=== PATIENT | male | born 1975 ===

== ENCOUNTER 2016-07-30 12:31 | Emergency (ER) | payer MEDICAID ==
[2016-07-30 14:14] LABS: BASO # 0.1 K/uL (0.0-0.2); BASO % 1.1 % (0.0-2.0); EOS # 0.2 K/uL (0.0-0.7); EOS % 2.1 % (0.0-4.0); LYMPH # 2.1 K/uL (1.0-4.3); LYMPH % 21.6 % (20.0-40.0); MEAN CELL VOLUME 93.3 fL (80.0-94.0); MEAN CORPUSCULAR HEMOGLOBIN 30.5 pg (27.0-31.0); MEAN CORPUSCULAR HGB CONC 32.7 g/dL (33.0-37.0); MEAN PLATELET VOLUME 10.8 fL (7.2-11.7); MONO # 0.5 K/uL (0.0-0.8); MONO % 4.8 % (0.0-10.0); NRBC % 0.1 % (0.0-2.0); RED CELL DISTRIBUTION WIDTH 13.9 % (11.5-14.5); WHITE BLOOD COUNT 9.8 K/uL (4.8-10.8)
--- NOTE | 2016-07-30 14:18 | C.PDOC ---
History Of Present Illness 40 y/o male pmhx PTSD, anxiety presents to ED s/p syncopal episode earlier today. 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 Pt woke up with bump to head, headache, right shoulder pain and abrasion. Pt reports similar syncopal episodes in the past associated with anxiety. Pt denies vision changes, nausea, vomiting, chest pain, palpitations, SOB or any other complaints. Time Seen by Provider: 07/30/16 13:33 Chief Complaint (Nursing): Syncope History Per: Patient History/Exam Limitations: no limitations Onset/Duration Of Symptoms: Mins Current Symptoms Are (Timing): Gone Fall Associated With With Symptoms: Yes, Positive Injury Severity: Moderate Recent travel outside of the [place]: No Past Medical History Reviewed: Historical Data, Nursing Documentation, Vital Signs Vital Signs: Last Vital Signs Temp 97.5 F L 07/30/16 12:38 Pulse 66 07/30/16 12:38 Resp 16 07/30/16 12:38 BP 139/83 07/30/16 12:38 Pulse Ox 98 07/30/16 15:47 - Medical History PMH: Anxiety, Depression, HTN, Post Traumatic Stress Disorder Family History: States: Unknown Family Hx - Social History Hx Tobacco Use: No Hx Alcohol Use: No Hx Substance Use: No - Immunization History Hx Tetanus Toxoid Vaccination: No Hx Influenza Vaccination: No Hx Pneumococcal Vaccination: No Review Of Systems Constitutional: Negative for: Fever Cardiovascular: Negative for: Chest Pain, Palpitations Respiratory: Negative for: Shortness of Breath Gastrointestinal: Negative for: Nausea, Vomiting Musculoskeletal: Positive for: Other (righty shoulder pain with abrasion) Neurological: Positive for: Headache Physical Exam - Physical Exam Additional Physical Exam Comments: Constitutional: No acute distress. Head: Normocephalic. Small hematoma to right parietal scalp. Eyes: PERRL. ENT: Moist mucous membranes. Neck: Supple. Cardiovascular: Regular rate. Radial pulse 2+ bilaterally. Chest: No tenderness. Respiratory: Clear to auscultation bilaterally. GI: Soft. Nontender. Nondistended. Back: No CVA tenderness. Musculoskeletal: No tenderness or swelling of extremities. Superficial abrasion to right anterior shoulder, full ROM. Skin: As above. Neurologic: Alert, no focal deficit ED Course And Treatment - Laboratory Results Result Diagrams: 07/30/16 14:10 07/30/16 14:10 O2 Sat by Pulse Oximetry: 98 (room air) Pulse Ox Interpretation: Normal Medical Decision Making Medical Decision Making: Plan: * CT head * XR right shoulder * EKG * labs CT HEAD-- EXAM: CT Head Without Intravenous Contrast CLINICAL HISTORY: 40 years old, male; Injury or trauma; Fall; Initial encounter; Concussion / head injury; Injury date: 07/30/16; Injury details: ? Panic attack; Additional info: Fall, head injury TECHNIQUE: Axial computed tomography images of the head/brain without intravenous contrast. This CT exam was performed using one or more of the following dose reduction techniques: automated exposure control, adjustment of the mA and/or kV according to patient size, and/or use of iterative reconstruction technique. EXAM DATE/TIME: Exam ordered 07/30/2016 2:05 PM COMPARISON: No relevant prior studies available. FINDINGS: Brain: Unremarkable. No hemorrhage. No significant white matter disease. No edema. Ventricles: Unremarkable. No ventriculomegaly. Bones/joints: Unremarkable. No acute fracture. Soft tissues: Unremarkable. Vasculature: Small rounded filling defect is noted within the left sigmoid sinus consistent with a benign arachnoid granulation. Sinuses: Minimal mucosal thickening is noted within the posterior ethmoids on the left. No acute sinusitis. Mastoid air cells: Unremarkable as visualized. No mastoid effusion. IMPRESSION: 1. No acute findings. 2. Minimal mucosal thickening is noted within the posterior ethmoids on the left. Shoulder XR-- no fracture or dislocation. EKG Sinus rhythm 60 bpm, no ST/T wave changes. Patient in no distress during ER stay. Will discharge home, f/u PMD, return to ER for worsening pain, fever, vomiting, dyspnea, chest pain, recurrent syncope. Disposition - Disposition Disposition: HOME/ ROUTINE Disposition Time: 15:45 Condition: STABLE Instructions: Syncope (ED) - Clinical Impression Clinical Impression: Syncope - Scribe Statement The provider has reviewed the documentation as recorded by the Clark Pemberton Provider Attestation: All medical record entries made by the Bridgeribaaliyah were at my direction and personally dictated by me. I have reviewed the chart and agree that the record accurately reflects my personal performance of the history, physical exam, medical decision making, and the department course for this patient. I have also personally directed, reviewed, and agree with the discharge instructions and disposition.
[2016-07-30 14:24] LABS: CHLORIDE 107 mmol/L (98-107); POTASSIUM 3.7 mmol/L (3.6-5.2); SODIUM 141 mmol/L (132-148)
[2016-07-30 14:26] LABS: BILIRUBIN,TOTAL 0.5 mg/dL (0.2-1.3); CARBON DIOXIDE 24 mmol/L (22-30); GFR AFRICAN-AMERICAN > 60
[2016-07-30 14:27] LABS: ALB/GLOB RATIO 1.3 (1.0-2.1); ALKALINE PHOSPHATASE 66 U/L (38-126); ALT/SGPT 32 U/L (21-72); AST/SGOT 22 U/L (17-59); BLOOD UREA NITROGEN 14 mg/dL (9-20); CALCIUM 9.1 mg/dl (8.6-10.4); GLUCOSE,RANDOM 89 mg/dL (75-110); TOTAL PROTEIN 7.1 g/dL (6.3-8.3)
--- NOTE | 2016-07-30 15:13 | RAD ---
HISTORY: syncope COMPARISON: No prior. TECHNIQUE: Chest PA and lateral FINDINGS: LUNGS: No active pulmonary disease. PLEURA: No significant pleural effusion identified. No pneumothorax apparent. CARDIOVASCULAR: Normal. OSSEOUS STRUCTURES: No significant abnormalities. VISUALIZED UPPER ABDOMEN: Normal. OTHER FINDINGS: None. IMPRESSION: No active disease.
--- NOTE | 2016-07-30 15:43 | CT ---
EXAM: CT Head Without Intravenous Contrast CLINICAL HISTORY: 40 years old, male; Injury or trauma; Fall; Initial encounter; Concussion / head injury; Injury date: 07/30/16; Injury details: ? Panic attack; Additional info: Fall, head injury TECHNIQUE: Axial computed tomography images of the head/brain without intravenous contrast. This CT exam was performed using one or more of the following dose reduction techniques: automated exposure control, adjustment of the mA and/or kV according to patient size, and/or use of iterative reconstruction technique. EXAM DATE/TIME: Exam ordered 07/30/2016 2:05 PM COMPARISON: No relevant prior studies available. FINDINGS: Brain: Unremarkable. No hemorrhage. No significant white matter disease. No edema. Ventricles: Unremarkable. No ventriculomegaly. Bones/joints: Unremarkable. No acute fracture. Soft tissues: Unremarkable. Vasculature: Small rounded filling defect is noted within the left sigmoid sinus consistent with a benign arachnoid granulation. Sinuses: Minimal mucosal thickening is noted within the posterior ethmoids on the left. No acute sinusitis. Mastoid air cells: Unremarkable as visualized. No mastoid effusion. IMPRESSION: 1. No acute findings. 2. Minimal mucosal thickening is noted within the posterior ethmoids on the left.
--- NOTE | 2016-07-30 15:54 | RAD ---
Right shoulder three views History: Fall. Shoulder pain. Comparison: None available. Findings: Mild narrowing of the glenohumeral joint space. Acromioclavicular joint space is preserved. Impression: Mild narrowing of the glenohumeral joint space. If pain persists, consider MRI.
[2016-07-30 16:22] VITALS: BP 151/94; PULSE 65; RESP 20; TEMP 97.7; O2SAT 96
--- NOTE | 2016-08-02 00:31 | CARD ---
APPROVED REPORT EKG Measurement Heart [id number] <Conclusion> Sinus bradycardia LAD Minimal voltage criteria for LVH, may be normal variant Borderline ECG
== END 2016-07-30 16:21 | disposition home or self-care (01) ==
LOC: C.ER 12:31
DX: R55 Syncope and collapse (principal)